=== PATIENT | male | born 1945 | race Caucasian/White ===

== ENCOUNTER 2017-11-22 10:07 | Outpatient (CLI) | payer MEDICARE | END 2017-11-22 10:08 | disposition home or self-care (01) | LOC: BICCT 10:07 | PROVIDERS: ATTEND Anesthesiology Pain Medicine | DX: M53.82 Other specified dorsopathies, cervical region (principal); M47.892 Other spondylosis, cervical region; M43.12 Spondylolisthesis, cervical region; M99.81 Other biomechanical lesions of cervical region; Z98.1 Arthrodesis status | CPT/HCPCS: 72125 ==

== ENCOUNTER 2018-01-28 09:02 | Outpatient (CLI) | payer MEDICARE ==
[2018-01-28 10:30] LABS: Anion Gap 8 mmol/L (10-20); BUN (Urea Nitrogen) 17 mg/dL (8.4-25.7); Calc. Creatinine Clearance 0 mL/min (70-130); Calcium 9.5 mg/dL (7.8-10.44); Carbon Dioxide 27 mmol/L (23-31); Chloride 109 mmol/L (98-107); Estimated GFR-MDRD 70; Glucose 118 mg/dL (83-110); Hemoglobin 13.6 g/dL (14.0-18.0); Mean Corpuscular HGB CONC 33.4 g/dL (32.0-36.0); Mean Corpuscular Hemoglobin 30.2 pg (27.0-31.0); Mean Corpuscular Volume 90.3 fl (80.0-94.0); Mean Platelet Volume 7.8 fL (7.4-10.4); Platelet Count 186 thou/uL (130-400); Potassium 4.3 mmol/L (3.5-5.1); Red Blood Cell (RBC) Count 4.51 mill/uL (4.70-6.10); Sodium 140 mmol/L (136-145); White Blood Cell (WBC) Count 4.9 thou/uL (4.8-10.8)
[2018-01-28 10:51] LABS: PTT 32.7 SEC (22.9-36.1); Prothrombin Time 13.4 SEC (12.0-14.7)
== END 2018-01-28 09:03 | disposition home or self-care (01) ==
LOC: LABBT 09:02
PROVIDERS: ATTEND Surgery
DX: Z01.818 Encounter for other preprocedural examination (principal); M48.02 Spinal stenosis, cervical region; M54.12 Radiculopathy, cervical region
CPT/HCPCS: 80048; 85027; 85610; 85730; 93005; 93010

== ENCOUNTER 2018-02-05 05:55 | Day surgery (SDC) | payer MEDICARE ==
[2018-02-05] MEDS ORDERED: CEFAZOLIN/Water 2 GM/20 ML SYRINGE ONE (06:04)
[2018-02-05] MEDS ORDERED: Thrombin 5000 UNITS/5 ML VIAL ONE (06:33)
[2018-02-05] MEDS ORDERED: Sodium Chloride 0.9% 10 ML ONE (06:33)
[2018-02-05] MEDS ORDERED: Bacitracin Zinc Ointment 30 gm TUBE ONE (06:33)
[2018-02-05] MEDS ORDERED: Fentanyl 100 MCG/2 ML VIAL ONE (07:19)
[2018-02-05] MEDS ORDERED: Mag-Al 1200 mg/1200 mg/30 ML UDCUP PO PRN (09:49)
[2018-02-05] MEDS ORDERED: Acetaminophen/Codeine 30-300mg Tablet PO PRN (09:49)
[2018-02-05] MEDS ORDERED: tiZANidine HCl 4 MG TAB PO PRN (09:49)
[2018-02-05] MEDS ORDERED: Acetaminophen 325 MG TAB PO PRN (09:49)
[2018-02-05] MEDS ORDERED: Bisacodyl 10 MG SUPP PR PRN (09:49)
[2018-02-05] MEDS ORDERED: HYDROcodone/Acetaminophen 7.5/325 mg Tablet PO PRN (09:49)
[2018-02-05] MEDS ORDERED: Fleet Enema 133 ML BOT PR PRN (09:49)
[2018-02-05] MEDS ORDERED: Promethazine HCl 25 MG/ML VIAL IM PRN ×2 (09:49→10:00)
[2018-02-05] MEDS ORDERED: traMADol HCl 50 MG TAB PO PRN (09:49)
[2018-02-05] MEDS ORDERED: Milk Of Magnesia 30 ML UDCUP PO PRN (09:49)
[2018-02-05] MEDS ORDERED: Ipratropium Bromide 0.03% Nasal Inhaler 30 ml Bottle EA NARE PRN (09:56)
[2018-02-05] MEDS ORDERED: CEFAZOLIN/Water 2 GM/20 ML SYRINGE SLOW IVP SCH (10:00)
[2018-02-05] MEDS ORDERED: Ondansetron HCl/PF 4 MG/2 ML Vial IVP PRN (10:00)
[2018-02-05] MEDS ORDERED: Morphine Sulfate 2 MG/ML SYRINGE SLOW IVP PRN (10:00)
[2018-02-05] MEDS ORDERED: HYDROmorphone 2 MG/ML VIAL SLOW IVP PRN (10:00)
[2018-02-05] MEDS ORDERED: Meperidine HCl/PF 25 MG/ML VIAL SLOW IVP PRN (10:00)
[2018-02-05] MEDS ORDERED: Promethazine HCl 25 MG/ML VIAL SLOW IVP PRN (10:00)
--- NOTE | 2018-02-05 10:23 | OP ---
DATE OF PROCEDURE: 02/05/2018 OR: OR #12 WOUND TYPE: Type 1 wound. SURGEON: Max Payne M.D. PHYSICIAN: Nick Stone PA-C. PREPROCEDURE DIAGNOSES: Neck and arm pain with cervical stenosis. POSTPROCEDURE DIAGNOSES: Neck and arm pain with cervical stenosis. PROCEDURE: 1. Anterior C3-C4, C4-C5 diskectomies for decompression of the neural elements with preparation of t he endplates 2. Placement of interbody spacer packed with allograft, C3-C4, C4-C5 for structural support and arth rodesis C3-C4, C4-C5. 3. Anterior cervical plate and screw fixation, C3, C4, C5. 4. Use of operative microscope for microdissection. PROCEDURE: After informed consent was obtained from the patient, the patient was brought to OR 12. Proper patient pause and identification was carried out. He was placed under excellent general endot elizabeth anesthesia and positioned supine on the OR table with his head kept in cervical neutrality. We then identified a right anterior oblique sohan that would allow for approach to the C3, C4, C5 segm ents. This region was sterilely cleansed, prepared, and draped. Proper patient pause and identifica tion was carried out. The wound was then opened with a combination of sharp, monopolar and blunt dis section, and proceeded lateral to the larynx and pharynx and medial to the right carotid sheath. We identified the prevertebral layer of deep cervical fascia and the C3, C4, C5 segments that were ident ified and the longus colli muscles swept laterally. Retraction was placed. We then distracted at th e C3-4 segment. The microscope was brought in for microdissection. We performed a C3-C4 diskectomy with decompression of spinal cord and nerve roots and preparation of the endplates. Interbody spacer packed with allograft was then placed at C3-C4 for arthrodesis. We then turned our attention to dis traction at C4-C5 and a diskectomy performed there following distraction with excellent decompression of the common dural tube and the C5 nerve roots. The endplates again were prepared and a structural graft was placed, packed with allograft for arthrodesis. We then removed the microscope and anterio r cervical plate and screw fixation with final tightening then occurred at C3, C4, C5. Copious irrig ation and maximizing hemostasis occurred throughout the case. The wound was then closed in anatomic layers over a drain. The patient then emerged from anesthesia.
[2018-02-05] MEDS ORDERED: Azelastine 137 MCG/Spray 30 ML NS PRN (10:45)
[2018-02-05] MEDS ORDERED: Fluticasone Propionate Nasal Spray 16 gm Bottle NASAL PRN (11:00)
[2018-02-05] MEDS ORDERED: Metoclopramide HCl 10 MG/2 ML VIAL ONE (13:24)
[2018-02-05] MEDS ORDERED: PROPOFOL 200 MG/20 ML VIAL ONE (13:24)
[2018-02-05] MEDS ORDERED: Dexamethasone 20 MG/5 ML VIAL ONE (13:24)
[2018-02-05] MEDS ORDERED: Ondansetron HCl/PF 4 MG/2 ML Vial ONE (13:24)
[2018-02-05] MEDS ORDERED: Lidocaine 1% PF 5 ML VIAL ONE (13:24)
[2018-02-05] MEDS ORDERED: Glycopyrrolate 0.2 MG/ML 5 ML SYRINGE ONE (13:24)
[2018-02-05 13:50] VITALS: BMI 29.9
[2018-02-05] MEDS ORDERED: Clindamycin/D5W 900 MG in Premix Bag 1 BAG IVPB SCH (14:00)
[2018-02-05] MEDS: CEFAZOLIN/Water 2 GM/20 ML SYRINGE SLOW IVP SCH (16:14)
[2018-02-05] MEDS: Sodium Chloride 0.9% 1,000 ML IV SCH (19:39)
[2018-02-05] MEDS ORDERED: Ezetimibe 10 MG TAB PO SCH (21:00)
[2018-02-05] MEDS ORDERED: Non-Formulary Item 1 EACH (Ezetimibe/Simvastatin [Ezetimibe-Simvastatin 10-40 Mg] 1 TAB) PO SCH (21:00)
[2018-02-05] MEDS ORDERED: Terazosin HCl 5 MG CAP PO SCH (21:00)
[2018-02-05] MEDS ORDERED: Simvastatin 40 MG TAB PO SCH (21:00)
[2018-02-06] MEDS: CEFAZOLIN/Water 2 GM/20 ML SYRINGE SLOW IVP SCH ×2 (00:10→08:58)
[2018-02-06] MEDS: Sodium Chloride 0.9% 1,000 ML IV SCH (01:14)
[2018-02-06 08:04] VITALS: BP 116/61; TEMP 98.1
[2018-02-06] MEDS ORDERED: Multivitamin W/ Minerals 1 TAB PO SCH (09:00)
--- NOTE | 2018-02-06 09:37 | PRG ---
DATE OF SERVICE: 02/06/2018 SUBJECTIVE: Mr. Barnes is postoperative day #1 from C3-5 ACDF. He is doing very well. He states h e has no neck or arm pain. He has mild dysphonia. He is tolerating orals. He is mobilizing. His e xam is satisfactory. He will be dismissed.
== END 2018-02-06 11:28 | disposition home or self-care (01) ==
LOC: SDC 05:55 → SURG A 07:06 → SDC 02-06 11:28
PROVIDERS: ATTEND Surgery
PROC: 0RG20A0 Fusion of 2 or more Cervical Vertebral Joints with Interbody Fusion Device, Anterior Approach, Anterior Column, Open Approach (ICD-10-PCS; principal; 2018-02-05)
PROC: 0RG20K0 Fusion of 2 or more Cervical Vertebral Joints with Nonautologous Tissue Substitute, Anterior Approach, Anterior Column, Open Approach (ICD-10-PCS; 2018-02-05)
PROC: 0RB30ZZ Excision of Cervical Vertebral Disc, Open Approach (ICD-10-PCS; 2018-02-05)
DX: M48.02 Spinal stenosis, cervical region (principal); M54.12 Radiculopathy, cervical region; Z88.8 Allergy status to other drugs, medicaments and biological substances; Z87.891 Personal history of nicotine dependence; Z79.82 Long term (current) use of aspirin; Z79.899 Other long term (current) drug therapy
CPT/HCPCS: 20931; 22551; 22552; 22853 ×2; 76001; 82962; C1713 ×2; C1776; L0174; 36416; A4216; J0131; J1100; J2001; J2405; J2704; J2765; J3010; J3370; J3490

== ENCOUNTER 2018-03-25 09:49 | Outpatient (CLI) | payer MEDICARE ==
--- NOTE | 2018-03-25 12:10 | RAD ---
CERVICAL SPINE SERIES THREE VIEWS: History: Follow up surgery 8 weeks ago. Comparison: 05-03-17 FINDINGS: Patient has undergone anterior cervical fusion. There has been placement of a plate and screws extend ing from C3 to C5. Markers of disc implant are within the confines of the distal level. Disc narrowin g is seen at C5-6. Degenerative facet changes are noted. No soft tissue swelling. IMPRESSION: Post-operative changes of the spine. POS: K[facility]
== END 2018-03-25 09:50 | disposition home or self-care (01) ==
LOC: TBSIIMAG 09:49
PROVIDERS: ATTEND Surgery
DX: M54.2 Cervicalgia (principal); Z98.1 Arthrodesis status
CPT/HCPCS: 72040

== ENCOUNTER 2020-06-06 14:05 | Emergency (ER) | payer MEDICARE, OTHER | END 2020-06-06 15:50 | disposition home or self-care (01) | LOC: ERS 14:05 | DX: Z53.21 Procedure and treatment not carried out due to patient leaving prior to being seen by health care provider (principal) ==

== ENCOUNTER 2020-09-02 06:22 | Day surgery (SDC) | payer MEDICARE ==
[2020-08-30 14:47] VITALS: BMI 29.9
[2020-09-02] MEDS ORDERED: Bupivacaine 0.25% HCL 30 ML VIAL ONE (06:27)
[2020-09-02] MEDS ORDERED: Lidocaine 2% Jelly 5 ML TUBE ONE (06:27)
[2020-09-02] MEDS ORDERED: EPINEPHrine 1 MG/ML AMP ONE (06:33)
[2020-09-02] MEDS ORDERED: Fentanyl 100 MCG/2 ML VIAL ONE (06:46)
[2020-09-02] MEDS ORDERED: Ketorolac Tromethamine 30 MG/ML VIAL ONE (06:50)
[2020-09-02] MEDS ORDERED: Acetaminophen 500 MG TAB ONE (06:50)
[2020-09-02] MEDS ORDERED: Ondansetron PF 4 MG/2 ML Vial ONE (10:19)
[2020-09-02] MEDS ORDERED: PROPOFOL 200 MG/20 ML VIAL ONE (10:19)
[2020-09-02] MEDS ORDERED: ePHEDrine 50 MG/ML VIAL ONE (10:19)
[2020-09-02] MEDS ORDERED: Lidocaine 1% PF 5 ML VIAL ONE (10:19)
[2020-09-02] MEDS ORDERED: Dexamethasone 20 MG/5 ML VIAL ONE (10:19)
--- NOTE | 2020-09-03 11:31 | OP ---
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 OPERATION PERFORMED: Rectal examination under anesthesia, fistulotomy, excisional biopsy of two separate external anal nodular lesion associated with the fistula. ANESTHESIA: General endotracheal. INDICATIONS: The patient is a 75-year-old white male. He was evaluated in my office for an external anal nodule which he had noted some drainage. I suspected this was an anal fistula, but he had enough discomfort that I could not really examine this well in the office. Additionally, the nodule is indurated and not typical of an anal fistula external opening. I was suspicious of the possibility of this being a malignancy. I therefore recommend rectal examination under anesthesia with treatment as appropriate. DESCRIPTION OF OPERATION: Informed consent was obtained. The patient was taken to the operating room, where general endotracheal anesthesia was obtained with the patient in supine position. He was then placed into dorsal lithotomy position. Perianal area was prepped with Betadine and draped in sterile fashion. Local anesthetic was infiltrated using a mixture of 1% lidocaine with epinephrine and 0.25% Marcaine. I initially evaluated the external nodule. This is at about the 1:30 radian and located 1 to 2 cm from the anal verge. I was able to express a tiny amount of purulent material from the opening within this. I cannulated this opening with an Angiocath and injected peroxide. I was able to visualize the peroxide bubbles emanating from an internal opening within the anal canal. This confirmed that this was an anal fistula. Lacrimal duct probe was then gently passed through the external opening and to the opening within the anal canal. This was done under palpable and visual guidance. I then assessed the potential involvement of the sphincter, which was not felt to be significant. I then performed a fistulotomy using electrocautery to completely unroof the fistula tract. Cautery was used to maintain hemostasis as well. A curette was used to debride the granulation tissue along the tract. The wound was left open to heal by secondary intention. Not mentioned above was the evaluation of the nodule itself externally. Immediately after I had cannulated the nodule with a lacrimal duct probe, I completely excised the external nodule in continuity with the associated fistula tract. This nodule was submitted as the external anal lesion. Along the tract was a 2nd firm nodule of uncertain significance. This was much smaller, only 2 or 3 mm in diameter and this was submitted as the internal anal nodule. After I was certain that there was complete hemostasis, additional local anesthetic was infiltrated. Gel-Foam was placed within the wound and a gauze dressing and mesh pants were placed externally. There were no complications. The patient tolerated the procedure well and was taken to recovery room in stable condition. Job ID: [id number]
== END 2020-09-02 11:10 | disposition home or self-care (01) ==
LOC: SDC 06:22
PROVIDERS: ATTEND Specialist
PROC: 0D9QXZZ Drainage of Anus, External Approach (ICD-10-PCS; principal; 2020-09-02)
PROC: 0DBQXZX Excision of Anus, External Approach, Diagnostic (ICD-10-PCS; 2020-09-02)
DX: K62.0 Anal polyp (principal); K60.3 Anal fistula; E78.5 Hyperlipidemia, unspecified; K21.9 Gastro-esophageal reflux disease without esophagitis; N40.0 Benign prostatic hyperplasia without lower urinary tract symptoms; M19.90 Unspecified osteoarthritis, unspecified site; E66.3 Overweight; Z68.30 Body mass index [BMI] 30.0-30.9, adult; Z79.899 Other long term (current) drug therapy; Z88.8 Allergy status to other drugs, medicaments and biological substances
CPT/HCPCS: 88305; J0171; J0690; J1100; J1885; J2405; J2704; J3010; J3490; S0020

== ENCOUNTER 2021-03-03 10:26 | Outpatient (CLI) | payer MEDICARE ==
[2020-08-30 14:30] LABS: #Eosinphils 0.1 10x3/uL (0.0-0.5); #Monocytes 0.8 10x3/uL (0.0-1.1); #Neutrophils 3.7 10x3/uL (1.5-8.4); %Basophils 0.3 % (0.0-2.0); %Eosinophils 1.7 % (0.0-6.0); %Lymphocytes 33.3 % (18.0-47.0); %Neutrophils 53.4 % (40.0-75.0); Hemoglobin 14.2 g/dL (14.0-18.0); Mean Corpuscular HGB CONC 32.3 G/DL (32.0-36.0); Mean Corpuscular Hemoglobin 29.3 PG (27.0-33.0); Mean Corpuscular Volume 90.7 fl (80.0-100.0); Mean Platelet Volume 11.1 fl (7.4-10.4); Platelet Count 261 10x3/uL (130-400); RBC Distribution Width 14.8 % (11.5-14.5); Red Blood Cell (RBC) Count 4.84 10x6/uL (4.40-5.80); White Blood Cell (WBC) Count 6.9 10x3/uL (4.5-11.0)
[2020-08-30 14:44] LABS: Anion Gap 13 mmol/L (10-20); BUN (Urea Nitrogen) 22 mg/dL (8.4-25.7); Calc. Creatinine Clearance 0 mL/min (70-130); Calcium 9.6 mg/dL (7.8-10.44); Carbon Dioxide 26 mmol/L (23-31); Chloride 105 mmol/L (98-107); Glucose 90 mg/dL (83-110); Potassium 4.8 mmol/L (3.5-5.1); Sodium 139 mmol/L (136-145)
[2020-08-31 02:06] LABS: SARS-CoV-2 MS2 Positive; SARS-CoV-2 N Gene Negative; SARS-CoV-2 S Gene Negative; SARS-CoV-2 by NAA Not Detected (NotDetected); SARS-CoV-2 orf1ab Negative
[2021-03-03 12:01] LABS: Bilirubin Neg (Negative); Blood, Urine Negative (Negative); Clarity Clear (Clear); Glucose, Urine (Dipstick) Normal (Negative); Ketone, Urine Negative (Negative); Leukocyte Negative (Negative); Nitrite Negative (Negative); Protein, Urine (Dipstick) Negative (Neg-Trace); Specific Gravity, Urine 1.005 (1.002-1.036); Urobilinogen Normal mg/dL (Less than 2)
[2021-03-03 12:11] LABS: INR-International Normal Ratio 0.9; Prothrombin Time 10.4 sec (9.5-12.1)
[2021-03-03 12:44] LABS: Bacteria/HPF None Seen HPF (None Seen); RBC/HPF 0-3 HPF (0-3); Squamous Epithelial None Seen HPF (0-3); WBC/HPF None Seen HPF (0-3)
== END 2021-03-03 10:27 | disposition home or self-care (01) ==
LOC: LABBT 10:26
PROVIDERS: ATTEND Orthopaedic Surgery
DX: Z01.812 Encounter for preprocedural laboratory examination (principal); M17.12 Unilateral primary osteoarthritis, left knee
CPT/HCPCS: 71046; 80048; 81001; 85025; 85610; 87081; 93005; U0003; 93010

== ENCOUNTER 2021-03-08 08:38 | Inpatient (IN) | payer MEDICARE ==
[2021-03-08] MEDS ORDERED: Fentanyl 100 MCG/2 ML VIAL ONE ×2 (09:16→11:45)
[2021-03-08] MEDS ORDERED: Midazolam HCl 2 mg/2 ml Vial ONE (09:16)
[2021-03-08] MEDS ORDERED: Vancomycin 1.5 GRAM/300 ML BAG 1.5 GM in Premix Bag 1 BAG IVPB SCH (09:45)
[2021-03-08] MEDS ORDERED: Tranexamic Acid 1,000 MG/10 ML VIAL ONE ×2 (09:55→09:57)
[2021-03-08] MEDS ORDERED: Sodium Chloride 0.9% 100 ML ONE (09:55)
[2021-03-08] MEDS ORDERED: Lidocaine 1% (PF) 30 ML VIAL ONE (10:28)
[2021-03-08] MEDS ORDERED: diphenhydrAMINE 25 MG CAP PO PRN (10:44)
[2021-03-08] MEDS ORDERED: HYDROcodone/Acetaminophen 10/325 mg Tablet PO PRN ×3 (10:44→10:45)
[2021-03-08] MEDS ORDERED: Acetaminophen 325 MG TAB PO PRN (10:44)
[2021-03-08] MEDS ORDERED: Fentanyl 100 MCG/2 ML VIAL SLOW IVP PRN ×3 (10:44)
[2021-03-08] MEDS ORDERED: Ondansetron PF 4 MG/2 ML Vial IVP PRN ×2 (10:44→10:45)
[2021-03-08] MEDS ORDERED: Promethazine HCl 25 MG/ML VIAL IM PRN ×2 (10:44→10:45)
[2021-03-08] MEDS ORDERED: Zolpidem Tartrate 5 MG TAB PO PRN ×2 (10:44→10:45)
[2021-03-08] MEDS ORDERED: traMADol HCl 50 MG TAB PO PRN ×2 (10:45)
[2021-03-08] MEDS ORDERED: Ropivacaine 0.2% 550 ML 550 ML NERVE BLCK SCH (10:45)
[2021-03-08] MEDS ORDERED: Ipratropium Bromide 0.03% Nasal Inhaler 30 ml Bottle EA NARE PRN (10:46)
[2021-03-08] MEDS ORDERED: Aspirin 81 mg Enteric Coated Tablet PO SCH (11:00)
[2021-03-08] MEDS ORDERED: Lidocaine 1% PF 5 ML VIAL ONE (11:20)
[2021-03-08] MEDS ORDERED: Glycopyrrolate 0.2 MG/ML 5 ML SYRINGE ONE (11:20)
[2021-03-08] MEDS ORDERED: Ondansetron PF 4 MG/2 ML Vial ONE (11:20)
[2021-03-08] MEDS ORDERED: Dexamethasone 20 MG/5 ML VIAL ONE (11:20)
[2021-03-08] MEDS ORDERED: PROPOFOL 200 MG/20 ML VIAL ONE (11:20)
[2021-03-08] MEDS ORDERED: Ropivacaine 2% HCl/PF (20 MG/10 ML VIAL) ONE (11:20)
[2021-03-08] MEDS ORDERED: Bupivacaine HCl 0.5%/Epinephrine 1:200,000/PF 30 ml Vial ONE (11:20)
[2021-03-08] MEDS ORDERED: Fluticasone Propionate Nasal Spray 16 gm Bottle NASAL PRN (13:13)
[2021-03-08] MEDS ORDERED: Azelastine 137 MCG/Spray 30 ML NS PRN (13:15)
[2021-03-08] MEDS: Sodium Chloride 0.9% 1,000 ML IV SCH ×2 (15:43→21:07)
[2021-03-08] MEDS: Ketorolac Tromethamine 30 MG/ML VIAL IVP SCH ×2 (15:43→20:15)
[2021-03-08 18:43] VITALS: BMI 29.8
[2021-03-08] MEDS: Terazosin HCl 5 MG CAP PO SCH (21:05)
[2021-03-08] MEDS: Atorvastatin Calcium 20 MG TAB PO SCH (21:05)
[2021-03-08] MEDS: Ezetimibe 10 MG TAB PO SCH (21:05)
[2021-03-08] MEDS: Aspirin 81 mg Enteric Coated Tablet PO SCH (21:05)
[2021-03-08] MEDS: CLINDAMYCIN PHOSPHATE 1% TP SCH (21:06)
[2021-03-08] MEDS: CEFAZOLIN 2 GM in Premix Bag 1 BAG IVPB SCH (21:07)
[2021-03-09] MEDS: Ketorolac Tromethamine 30 MG/ML VIAL IVP SCH ×5 (01:29→23:55)
[2021-03-09 05:28] LABS: Hemoglobin 12.7 g/dL (14.0-18.0); Mean Corpuscular HGB CONC 33.2 g/dL (32.0-36.0); Mean Corpuscular Hemoglobin 30.8 pg (27.0-31.0); Mean Corpuscular Volume 92.8 fL (78.0-98.0); Mean Platelet Volume 7.9 fL (7.4-10.4); Platelet Count 172 thou/uL (130-400); RBC Distribution Width 12.6 % (11.5-14.5); Red Blood Cell (RBC) Count 4.11 mill/uL (4.70-6.10); White Blood Cell (WBC) Count 8.8 thou/uL (4.8-10.8)
[2021-03-09] MEDS: CEFAZOLIN 2 GM in Premix Bag 1 BAG IVPB SCH (05:31)
[2021-03-09] MEDS: Sodium Chloride 0.9% 1,000 ML IV SCH ×2 (09:09→17:42)
[2021-03-09] MEDS: CLINDAMYCIN PHOSPHATE 1% TP SCH ×2 (09:09→21:22)
[2021-03-09] MEDS: Aspirin 81 mg Enteric Coated Tablet PO SCH ×2 (09:10→21:22)
[2021-03-09] MEDS: Multivitamin W/ Minerals 1 TAB PO SCH (09:10)
[2021-03-09] MEDS: Ferrous Gluconate 324 MG TAB PO SCH ×2 (09:10→21:22)
[2021-03-09] MEDS: Senokot S 8.6-50 MG TAB PO SCH ×2 (09:10→21:22)
[2021-03-09] MEDS: HYDROcodone/Acetaminophen 10/325 mg Tablet PO PRN (10:51)
[2021-03-09] MEDS ORDERED: traMADol HCl 50 MG TAB PO PRN (14:08)
[2021-03-09] MEDS: Ezetimibe 10 MG TAB PO SCH (21:21)
[2021-03-09] MEDS: Terazosin HCl 5 MG CAP PO SCH (21:22)
[2021-03-09] MEDS: Atorvastatin Calcium 20 MG TAB PO SCH (21:22)
[2021-03-10] MEDS: Sodium Chloride 0.9% 1,000 ML IV SCH ×3 (03:29→19:41)
[2021-03-10] MEDS: Ketorolac Tromethamine 30 MG/ML VIAL IVP SCH (05:30)
[2021-03-10] MEDS: Multivitamin W/ Minerals 1 TAB PO SCH (08:22)
[2021-03-10] MEDS: Aspirin 81 mg Enteric Coated Tablet PO SCH ×2 (08:22→19:41)
[2021-03-10] MEDS: Senokot S 8.6-50 MG TAB PO SCH ×2 (08:22→19:40)
[2021-03-10] MEDS: Ferrous Gluconate 324 MG TAB PO SCH ×2 (08:22→19:40)
[2021-03-10] MEDS: CLINDAMYCIN PHOSPHATE 1% TP SCH ×2 (08:23→19:41)
[2021-03-10] MEDS: HYDROcodone/Acetaminophen 10/325 mg Tablet PO PRN ×2 (08:37→12:34)
[2021-03-10] MEDS: Ezetimibe 10 MG TAB PO SCH (19:41)
[2021-03-10] MEDS: Terazosin HCl 5 MG CAP PO SCH (19:41)
[2021-03-10] MEDS: Atorvastatin Calcium 20 MG TAB PO SCH (19:41)
[2021-03-11] MEDS: Sodium Chloride 0.9% 1,000 ML IV SCH (08:31)
[2021-03-11] MEDS: HYDROcodone/Acetaminophen 10/325 mg Tablet PO PRN (08:32)
[2021-03-11] MEDS: Aspirin 81 mg Enteric Coated Tablet PO SCH (10:13)
[2021-03-11] MEDS: Multivitamin W/ Minerals 1 TAB PO SCH (10:13)
[2021-03-11] MEDS: Ferrous Gluconate 324 MG TAB PO SCH (10:14)
[2021-03-11] MEDS: Senokot S 8.6-50 MG TAB PO SCH (10:17)
[2021-03-11] MEDS: CLINDAMYCIN PHOSPHATE 1% TP SCH (10:17)
[2021-03-11 10:20] VITALS: BP 146/71; TEMP 98.2
== END 2021-03-11 11:55 | disposition home or self-care (01) | DRG 470 ==
LOC: SDC 08:38 → SJJU 10:45
PROVIDERS: ADMIT Orthopaedic Surgery; ATTEND Orthopaedic Surgery
PROC: 0SRD0J9 Replacement of Left Knee Joint with Synthetic Substitute, Cemented, Open Approach (ICD-10-PCS; principal; 2021-03-08)
PROC: 3E0T3BZ Introduction of Anesthetic Agent into Peripheral Nerves and Plexi, Percutaneous Approach (ICD-10-PCS; 2021-03-08)
DX: M17.12 Unilateral primary osteoarthritis, left knee (principal); E78.5 Hyperlipidemia, unspecified; K21.9 Gastro-esophageal reflux disease without esophagitis; N40.0 Benign prostatic hyperplasia without lower urinary tract symptoms; J30.9 Allergic rhinitis, unspecified; Z79.899 Other long term (current) drug therapy; Z90.49 Acquired absence of other specified parts of digestive tract; Z88.8 Allergy status to other drugs, medicaments and biological substances
CPT/HCPCS: 36415; 85027; A4306; C1713; C1776; J0690; J1100; J1885; J2001; J2250; J2405; J2704; J2795; J3010; J3370; J3490

== ENCOUNTER 2021-06-10 10:55 | Outpatient (CLI) | payer MEDICARE ==
[2021-06-10 11:59] LABS: Bilirubin Neg (Negative); Blood, Urine Negative (Negative); Clarity Clear (Clear); Glucose, Urine (Dipstick) Normal (Negative); Ketone, Urine Negative (Negative); Leukocyte Negative (Negative); Nitrite Negative (Negative); Protein, Urine (Dipstick) Negative (Neg-Trace); Specific Gravity, Urine 1.025 (1.002-1.036); Urobilinogen Normal mg/dL (Less than 2)
[2021-06-10 12:35] LABS: Hemoglobin 14.3 g/dL (13.5-17.5); Mean Corpuscular HGB CONC 32.1 g/dL (32.0-36.0); Mean Corpuscular Hemoglobin 29.2 pg (27.0-33.0); Mean Corpuscular Volume 91.2 fl (81.2-95.1); Mean Platelet Volume 10.1 fl (7.4-10.4); Platelet Count 283 10x3/uL (150-450); RBC Distribution Width 14.9 % (11.5-14.5); Red Blood Cell (RBC) Count 4.89 10x6/uL (4.32-5.72); White Blood Cell (WBC) Count 8.9 10x3/uL (3.5-10.5)
[2021-06-10 12:46] LABS: Bacteria/HPF None Seen HPF (None Seen); RBC/HPF None Seen HPF (0-3); Squamous Epithelial None Seen HPF (0-3); WBC/HPF None Seen HPF (0-3)
[2021-06-10 12:48] LABS: PTT 24.5 sec (22.0-33.0); Prothrombin Time 10.6 sec (9.5-12.1)
[2021-06-10 13:04] LABS: Anion Gap 14 mmol/L (10-20); BUN (Urea Nitrogen) 26 mg/dL (8.4-25.7); Calc. Creatinine Clearance 0 mL/min (70-130); Carbon Dioxide 26 mmol/L (23-31); Chloride 107 mmol/L (98-107); Glucose 93 mg/dL (83-110); Potassium 4.8 mmol/L (3.5-5.1); Sodium 142 mmol/L (136-145)
[2021-06-11 01:38] LABS: SARS-CoV-2 PCR by NAA Not Detected (NotDetected)
== END 2021-06-10 10:56 | disposition home or self-care (01) ==
LOC: LABBT 10:55
PROVIDERS: ATTEND Urology
DX: Z01.818 Encounter for other preprocedural examination (principal); N40.1 Benign prostatic hyperplasia with lower urinary tract symptoms; Z20.822 Contact with and (suspected) exposure to COVID-19
CPT/HCPCS: 80048; 81001; 85027; 85610; 85730; 87086; 93005; U0003; U0005; 93010

== ENCOUNTER 2021-06-15 07:31 | Day surgery (SDC) | payer MEDICARE ==
[2021-06-14 14:23] VITALS: BMI 29.2
[2021-06-15] MEDS ORDERED: Levofloxacin 500 mg/D5W 100 ml Premix Bag ONE (07:48)
[2021-06-15] MEDS ORDERED: PROPOFOL 200 MG/20 ML VIAL ONE (08:22)
[2021-06-15] MEDS ORDERED: Ondansetron PF 4 MG/2 ML Vial ONE (08:22)
[2021-06-15] MEDS ORDERED: Fentanyl 100 MCG/2 ML VIAL ONE (09:16)
[2021-06-15] MEDS ORDERED: Phenazopyridine HCl 100 MG TAB ONE (10:25)
[2021-06-15] MEDS ORDERED: Oxybutynin 5 MG TAB ONE (10:25)
== END 2021-06-15 12:12 | disposition home or self-care (01) ==
LOC: SDC 07:31
PROVIDERS: ATTEND Urology
PROC: 0T7D8DZ Dilation of Urethra with Intraluminal Device, Via Natural or Artificial Opening Endoscopic (ICD-10-PCS; principal; 2021-06-15)
DX: N40.1 Benign prostatic hyperplasia with lower urinary tract symptoms (principal); R39.15 Urgency of urination; R39.12 Poor urinary stream; R35.0 Frequency of micturition; N13.8 Other obstructive and reflux uropathy; N32.89 Other specified disorders of bladder; K21.9 Gastro-esophageal reflux disease without esophagitis; M19.90 Unspecified osteoarthritis, unspecified site; E78.5 Hyperlipidemia, unspecified; M54.12 Radiculopathy, cervical region; E66.3 Overweight; Z68.29 Body mass index [BMI] 29.0-29.9, adult; Z79.82 Long term (current) use of aspirin; Z79.899 Other long term (current) drug therapy; Z88.8 Allergy status to other drugs, medicaments and biological substances; Z98.1 Arthrodesis status
CPT/HCPCS: C9740; L8699; J1956; J2405; J2704; J3010

== ENCOUNTER 2024-01-02 07:28 | Observation (INO) | payer MEDICARE ==
[2023-12-21 15:45] VITALS: BMI 30.5
[2024-01-02] MEDS ORDERED: Ampicillin 2 GM VIAL ONE ×2 (09:44→09:46)
[2024-01-02] MEDS ORDERED: Sodium Chloride 0.9% 100 ML ONE (09:44)
[2024-01-02] MEDS ORDERED: LevoFLOXacin D5W 500 mg (100 mL) BAG ONE (09:44)
[2024-01-02] MEDS ORDERED: PROPOFOL 20 ML ONE (10:08)
[2024-01-02] MEDS ORDERED: fentaNYL PF 100 MCG/2 ML SYRINGE ONE (10:09)
[2024-01-02] MEDS ORDERED: Rocuronium Bromide 10 MG/ML (10ML VIAL) ONE (10:09)
[2024-01-02] MEDS ORDERED: Lidocaine 1% PF 5 ML VIAL ONE (10:09)
[2024-01-02] MEDS ORDERED: SUGAMMADEX SODIUM 200 MG/2 ML VIAL ONE (11:22)
[2024-01-02] MEDS ORDERED: Sevoflurane 250 ML INH ANEST BOTTLE ONE (11:48)
[2024-01-02] MEDS ORDERED: Morphine 2 MG/ML VIAL SLOW IVP PRN (12:29)
[2024-01-02] MEDS ORDERED: hydrALAZINE 20 MG/ML VIAL SLOW IVP PRN (12:29)
[2024-01-02] MEDS ORDERED: Bisacodyl 10 MG SUPP PR PRN (12:29)
[2024-01-02] MEDS ORDERED: HYDROcodone/Acetaminophen 5/325 mg Tablet PO PRN ×2 (12:29)
[2024-01-02] MEDS ORDERED: Ondansetron PF 4 MG/2 ML Vial IVP PRN (12:29)
[2024-01-02] MEDS ORDERED: Mag-Al 1200 mg/1200 mg/30 ML UDCUP PO PRN (12:29)
[2024-01-02] MEDS ORDERED: Non-Formulary Item 1 EACH (Azelastine Hcl [Azelastine Hcl 0.15% Nasal Spray] 205.5 MCG/0. EA NARE PRN (12:32)
[2024-01-02] MEDS ORDERED: Non-Formulary Item 1 EACH (Fluticasone Propionate [Flonase Allergy Relief] 9.9 ML Bottle) EA NARE PRN (12:32)
[2024-01-02] MEDS ORDERED: TACROLIMUS TOP PRN ×2 (12:32→12:45)
[2024-01-02] MEDS ORDERED: Ipratropium Bromide 0.03% Nasal Inhaler 30 ml Bottle EA NARE PRN ×2 (12:32→12:39)
[2024-01-02] MEDS ORDERED: Azelastine 137 MCG/NASAL Spray 30 ML NS PRN (12:40)
[2024-01-02] MEDS ORDERED: Fluticasone Propionate Nasal Spray 16 gm Bottle NASAL PRN (12:42)
[2024-01-02 13:26] LABS: #Basophils Less than 0.03 10x3/uL (0.0-0.2); %Basophils 0.1 % (0.0-1.0); %Lymphocytes 26.8 % (21.0-51.0); %Monocytes 10.3 % (0.0-10.0); %Neutrophils 61.7 % (42.0-75.0); Hematocrit 41.3 % (42.0-52.0); Hemoglobin 13.5 g/dL (14.0-18.0); Mean Corpuscular HGB CONC 32.7 g/dL (32.0-36.0); Mean Corpuscular Volume 94.9 fL (78.0-98.0); Mean Platelet Volume 10.3 fL (7.4-10.4); Platelet Count 173 10x3/uL (130-400); Red Blood Cell (RBC) Count 4.35 mill/uL (4.70-6.10)
[2024-01-02 14:10] LABS: Anion Gap 11 mmol/L (10-20); BUN (Urea Nitrogen) 14 mg/dL (8.4-25.7); Calc. Creatinine Clearance 99 mL/min (70-130); Calcium 8.5 mg/dL (7.8-10.44); Carbon Dioxide 24 mmol/L (23-31); Chloride 107 mmol/L (98-107); Estimated GFR 88; Glucose 102 mg/dL (83-110); Potassium 4.1 mmol/L (3.5-5.1); Sodium 138 mmol/L (136-145)
[2024-01-02] MEDS: Sodium Chloride 0.9% 1,000 ML IV SCH (15:29)
[2024-01-02] MEDS: Phenazopyridine HCl 100 MG TAB PO SCH (16:49)
[2024-01-02] MEDS: Famotidine/PF 20 mg/2ml Vial SLOW IVP SCH (21:58)
[2024-01-02] MEDS: Docusate 100 MG CAP PO SCH (21:58)
[2024-01-02] MEDS: Ezetimibe 10 MG TAB PO SCH (21:58)
[2024-01-02] MEDS: Trospium 20 MG TAB PO SCH (21:58)
[2024-01-02] MEDS: Atorvastatin Calcium 20 MG TAB PO SCH (21:58)
[2024-01-02] MEDS: Famotidine 20 MG TAB PO SCH (21:59)
[2024-01-03] MEDS: cefTRIAXone\\ROCEPHIN 1 GM in Sodium Chloride 0.9% 100 ML IVPB SCH (04:51)
[2024-01-03 05:51] LABS: #Basophils Less than 0.03 10x3/uL (0.0-0.2); %Basophils 0.1 % (0.0-1.0); %Eosinophils 0.7 % (0.0-10.0); %Monocytes 11.8 % (0.0-10.0); %Neutrophils 66.3 % (42.0-75.0); Hematocrit 39.9 % (42.0-52.0); Hemoglobin 13.1 g/dL (14.0-18.0); Mean Corpuscular HGB CONC 32.8 g/dL (32.0-36.0); Mean Corpuscular Hemoglobin 30.5 pg (27.0-31.0); Mean Platelet Volume 10.5 fL (7.4-10.4); Platelet Count 181 10x3/uL (130-400); RBC Distribution Width 14.1 % (11.5-14.5); Red Blood Cell (RBC) Count 4.29 mill/uL (4.70-6.10)
[2024-01-03 06:22] LABS: Anion Gap 14 mmol/L (10-20); BUN (Urea Nitrogen) 14 mg/dL (8.4-25.7); Calc. Creatinine Clearance 83 mL/min (70-130); Calcium 8.6 mg/dL (7.8-10.44); Carbon Dioxide 24 mmol/L (23-31); Chloride 109 mmol/L (98-107); Estimated GFR 76; Glucose 112 mg/dL (83-110); Sodium 143 mmol/L (136-145)
[2024-01-03] MEDS ORDERED: PYG PO SCH (09:00)
[2024-01-03] MEDS ORDERED: SAW PO SCH (09:00)
[2024-01-03] MEDS ORDERED: SOD SEL PO SCH (09:00)
[2024-01-03] MEDS ORDERED: VIT E PO SCH (09:00)
[2024-01-03] MEDS ORDERED: [UNRECOGNIZED DRUG - OTHER] PO SCH (09:00)
[2024-01-03] MEDS ORDERED: BETA PO SCH (09:00)
[2024-01-03] MEDS ORDERED: PROSTATE HEALTH DT SCH (09:00)
[2024-01-03] MEDS ORDERED: LYC PO SCH (09:00)
[2024-01-03] MEDS: Multivit, Therapeutic 1 TAB PO SCH (09:40)
[2024-01-03] MEDS: Polyethylene Glycol 3350 17 GM Packet PO SCH (09:48)
[2024-01-03 12:33] VITALS: BP 133/77; TEMP 98.5
== END 2024-01-03 16:00 | disposition home or self-care (01) ==
LOC: SDC 07:28 → SJJU 12:29
PROVIDERS: ADMIT Urology; ATTEND Urology
PROC: 0VT08ZZ Resection of Prostate, Via Natural or Artificial Opening Endoscopic (ICD-10-PCS; principal; 2024-01-02)
DX: N40.1 Benign prostatic hyperplasia with lower urinary tract symptoms (principal); R35.0 Frequency of micturition; N21.0 Calculus in bladder; E78.5 Hyperlipidemia, unspecified; M54.12 Radiculopathy, cervical region; R39.16 Straining to void; R35.1 Nocturia; K21.9 Gastro-esophageal reflux disease without esophagitis; N32.9 Bladder disorder, unspecified; Z88.8 Allergy status to other drugs, medicaments and biological substances; Z90.49 Acquired absence of other specified parts of digestive tract; Z79.899 Other long term (current) drug therapy
CPT/HCPCS: 52601; 80048 ×2; 85025 ×2; 86850; 86900; 86901; A4333; C1747; 36415; 88305; J0290; J0696; J1956; J2704; J3490; J7050; S0028

== ENCOUNTER 2024-09-09 09:00 | Outpatient (CLI) | payer OTHER | END 2024-09-09 09:01 | disposition home or self-care (01) | LOC: BICMRI 09:00 | PROVIDERS: ATTEND Family Medicine | DX: M47.22 Other spondylosis with radiculopathy, cervical region (principal); M47.812 Spondylosis without myelopathy or radiculopathy, cervical region; Z98.890 Other specified postprocedural states | CPT/HCPCS: 70210; 72141 ==

== ENCOUNTER 2024-09-22 16:56 | Emergency (ER) | payer OTHER ==
[2024-09-22] MEDS ORDERED: HYDROcodone/Acetaminophen 10/325 mg Tablet ONE (18:41)
[2024-09-22] MEDS ORDERED: fentaNYL 50 mcg/mL 1 mL Vial ONE (18:54)
== END 2024-09-22 19:00 | disposition home or self-care (01) ==
LOC: ERS 16:56
DX: M25.562 Pain in left knee (principal)
CPT/HCPCS: 73564; J3010; 96374

== ENCOUNTER 2024-10-07 09:15 | Outpatient (CLI) | payer OTHER | END 2024-10-07 09:16 | disposition home or self-care (01) | LOC: BICMRI 09:15 | PROVIDERS: ATTEND Student in an Organized Health Care Education/Training Program | DX: M47.26 Other spondylosis with radiculopathy, lumbar region (principal); M51.16 Intervertebral disc disorders with radiculopathy, lumbar region; M48.061 Spinal stenosis, lumbar region without neurogenic claudication; M47.817 Spondylosis without myelopathy or radiculopathy, lumbosacral region; M51.379 Other intervertebral disc degeneration, lumbosacral region without mention of lumbar back pain or lower extremity pain | CPT/HCPCS: 72148 ==